=== PATIENT | male | born 1955 | race Caucasian/White ===

== ENCOUNTER 2017-03-07 07:56 | Outpatient (RCR) | payer BC ==
[2013-06-04 23:21] VITALS: BP 136/79
[~2017-03-07 07:56] MED LIST: MEDI-FIRST ASP325 MG PO; PREDNISONE10 MG PO; TOPROL XL100 MG PO; ZESTORETIC 12.51 TA1 PO
== END 2017-06-05 | disposition home or self-care (01) ==
LOC: CARDREHAB
DX: Z48.812 Encounter for surgical aftercare following surgery on the circulatory system (principal); Z95.5 Presence of coronary angioplasty implant and graft

== ENCOUNTER → 2018-11-29 | Outpatient (CLI) | payer BC ==
[2013-06-04 23:21] VITALS: BP 136/79
== END ==
LOC: LAB 17:21
DX: L03.019 Cellulitis of unspecified finger (principal)

== ENCOUNTER 2023-11-30 17:30 | Inpatient (IN) | payer BC ==
[~2023-11-30] VITALS: Ht 172.7 cm; Wt 115.0 kg
[2023-12-01 18:55] VITALS: BP 93/56
[2023-12-01] MEDS ORDERED: Polyethylene Glycol 3350 Powder 17 GM PACKET PO PRN (20:30)
[2023-12-01] MEDS ORDERED: Bisacodyl 5 MG TAB PO PRN (20:30)
[2023-12-01] MEDS ORDERED: TYLENOL 325MG325 MG PO (20:43)
[2023-12-01] MEDS ORDERED: CHOLECALCIFEROL1 GM MC (20:44)
[2023-12-01] MEDS ORDERED: VITAMIN D21250 MCG PO (20:46)
[2023-12-01] MEDS ORDERED: NEURONTIN100 M1 PO (20:46)
[2023-12-01] MEDS ORDERED: LANTUS SOLOS100 U/ML SC (20:47)
[2023-12-01] MEDS ORDERED: ZESTRIL20 M1 PO (20:48)
[2023-12-01] MEDS ORDERED: METOPROLOL SUCC25 M1 PO (20:49)
[2023-12-01] MEDS ORDERED: ALLOPURINOL300 M1 PO (20:49)
[2023-12-01] MEDS ORDERED: PACERONE400 MG PO (20:50)
[2023-12-01] MEDS ORDERED: ELIQUIS5 MG PO (20:52)
[2023-12-01] MEDS ORDERED: THORAZINE 225 MG/TAB PO (20:53)
[2023-12-01] MEDS ORDERED: LASIX40 M1 PO (20:55)
[2023-12-01] MEDS ORDERED: DILAUDID4 M1 PO (20:56)
[2023-12-01] MEDS ORDERED: LIDODERM1 EACH TP (20:57)
[2023-12-01] MEDS ORDERED: NITROSTAT0.4 M1 SL (20:58)
[2023-12-01] MEDS ORDERED: PANTOPRAZOLE SO40 MG PO (20:59)
[2023-12-01] MEDS ORDERED: [UNRECOGNIZED DRUG - REMARK] ICA (21:00)
[2023-12-01] MEDS ORDERED: Docusate Sodium 100 MG CAP PO SCH (21:00)
[2023-12-01] MEDS ORDERED: CYTO B PO (21:00)
[2023-12-01] MEDS ORDERED: HYDROmorphone 2 MG TAB PO PRN ×2 (21:15→21:30)
[2023-12-01] MEDS ORDERED: Dextrose (Glucose) 15 GM (4 x 3.75 GM) Chewable TAB PACK PO PRN (21:15)
[2023-12-01] MEDS ORDERED: Ergocalciferol 1.25 MG (50,000 UNITS) CAPSULE PO SCH (21:15)
[2023-12-01] MEDS ORDERED: Furosemide 40 MG TAB PO PRN (21:15)
[2023-12-01] MEDS ORDERED: Dextrose 50% Water 25 GM/50 ML SYRINGE IV PRN (21:15)
[2023-12-01] MEDS ORDERED: Glucagon 1 MG VIAL IM PRN (21:15)
[2023-12-01] MEDS ORDERED: Lidocaine 4% Topical Patch TP SCH (21:23)
[2023-12-01] MEDS ORDERED: Sulfamethoxazole/Trimethoprim 800-160 MG TAB PO SCH (21:37)
[2023-12-01] MEDS ORDERED: Gabapentin 100 MG CAP PO SCH (22:00)
[2023-12-02 05:15] LABS: ALBUMIN 2.4 g/dL (3.4-4.8); CALCIUM 8.5 mg/dL (8.3-10.5); TOTAL BILIRUBIN 6.4 mg/dL (0.2-1.2)
[2023-12-02 05:17] LABS: BASO # 0.04 K/mm3 (0.02-0.10); HEMATOCRIT 36.2 % (42.0-52.0); HEMOGLOBIN 11.3 g/dL (13.5-18.0); LYMPH# 1.06 K/mm3 (1.50-4.00); MEAN CELL VOLUME 97 fl (78-100); MEAN CORPUSCULAR HEMOGLOBIN 30 pg (27-31); MEAN CORPUSCULAR HGB CONC 31 g/dL (33-37); MEAN PLATELET VOLUME 11.1 fl (7.4-10.4); MONO # 0.52 K/mm3 (0.20-0.80); NEU # 7.85 K/mm3 (1.40-6.50); PLATELET COUNT 250 K/mm3 (130-400); RED BLOOD COUNT 3.73 M/mm3 (4.20-5.60); RED CELL DISTRIBUTION WIDTH 18.7 % (11.5-14.5)
[2023-12-02 05:28] LABS: URINE APPEARANCE TURBID (CLEAR); URINE BILIRUBIN 3+ (NEGATIVE); URINE COLOR BROWN (YELLOW); URINE GLUCOSE TRACE (NEGATIVE); URINE KETONE 1+ (NEGATIVE); URINE PROTEIN(semi-quant) 3+ (NEGATIVE)
[2023-12-02 05:29] LABS: URINE BLOOD NEGATIVE (NEGATIVE); URINE LEUKOCYTE ESTERASE 3+ (NEGATIVE); URINE NITRATE NEGATIVE (NEGATIVE)
[2023-12-02 05:30] LABS: URINE MUCUS PRESENT (NOT PRESENT)
[2023-12-02 05:34] VITALS: BP 125/74
[2023-12-02] MEDS ORDERED: oxyCODONE 5 MG TAB PO PRN (07:45)
[2023-12-02] MEDS ORDERED: Amiodarone 200 MG TAB PO SCH (09:00)
[2023-12-02] MEDS ORDERED: Allopurinol 300 MG TAB PO SCH (09:00)
[2023-12-02] MEDS ORDERED: Acetaminophen 325 MG TAB PO SCH (09:00)
[2023-12-02] MEDS ORDERED: Lisinopril 20 MG TAB PO SCH (09:00)
[2023-12-02] MEDS ORDERED: Apixaban 5 MG TABLET PO SCH ×2 (09:00)
[2023-12-02] MEDS ORDERED: Thiamine 100 MG TAB PO SCH (09:00)
[2023-12-02] MEDS ORDERED: Lidocaine 4% Topical Patch TP SCH ×2 (09:00→21:00)
[2023-12-02 11:30] VITALS: BP 91/59
[2023-12-02] MEDS ORDERED: NS 1,000 ML IV SCH (15:30)
[2023-12-02 17:22] VITALS: BP 117/70
[2023-12-02 20:14] VITALS: BP 93/59
[2023-12-02 20:38] VITALS: BP 100/66
[2023-12-02 23:34] VITALS: BP 94/58
[2023-12-03 05:37] VITALS: BP 96/60
[2023-12-03] MEDS ORDERED: Ergocalciferol 1.25 MG (50,000 UNITS) CAPSULE PO SCH (09:00)
[2023-12-03] MEDS ORDERED: Docusate Sodium 100 MG CAP PO SCH (09:00)
[2023-12-03 17:02] VITALS: BP 119/72
[2023-12-04 05:19] VITALS: BP 109/73
[2023-12-04 17:03] VITALS: BP 118/74
[2023-12-05 05:24] VITALS: BP 105/66
[2023-12-05] MEDS ORDERED: oxyCODONE 5 MG TAB PO PRN (17:00)
[2023-12-05 17:39] VITALS: BP 133/86
[2023-12-06 05:22] VITALS: BP 119/78
[2023-12-06] MEDS ORDERED: Ergocalciferol 1.25 MG (50,000 UNITS) CAPSULE PO SCH (09:00)
== END 2023-12-07 15:25 | disposition home or self-care (01) | DRG 947 ==
LOC: MED/SURG 17:30
PROVIDERS: ADMIT Family Medicine
DX: R53.81 Other malaise (principal); I21.A1 Myocardial infarction type 2; C22.0 Liver cell carcinoma; E11.9 Type 2 diabetes mellitus without complications; I10 Essential (primary) hypertension; I25.10 Atherosclerotic heart disease of native coronary artery without angina pectoris; I95.9 Hypotension, unspecified; E78.5 Hyperlipidemia, unspecified; Z66 Do not resuscitate; D72.829 Elevated white blood cell count, unspecified; E80.6 Other disorders of bilirubin metabolism; R74.01 Elevation of levels of liver transaminase levels; E66.01 Morbid (severe) obesity due to excess calories; Z68.38 Body mass index [BMI] 38.0-38.9, adult; Z79.01 Long term (current) use of anticoagulants; Z79.4 Long term (current) use of insulin; Z79.891 Long term (current) use of opiate analgesic; Z86.711 Personal history of pulmonary embolism
CPT/HCPCS: J1815; J7030